=== PATIENT | male | born 1990 | race Caucasian/White ===

== ENCOUNTER 2023-09-16 10:28 | Emergency (ER) | payer OTHER, SELFPAY ==
--- NOTE | ~2023-09-16 | CT_ITS ---
EXAMINATION: CT ANGIOGRAM CHEST CLINICAL INFORMATION: Chest pain. Clinical concern for aortic dissection COMPARISON: None available. TECHNIQUE: Multiple axial images were obtained through the chest after the administration of 70 mL of Omnipaque 350 intravenous contrast. Extensive vascular post-processing including two-dimensional and three-dimensional reformatted images were created and reviewed on an independent workstation. This CT examination was performed using dose optimization techniques as appropriate, variously including the following: *Automated exposure control *Adjustment of mA and/or kV according to patient size (this includes techniques or standardized protocols for targeted exams where dose is matched to indication/reason for exam; i.e. extremities or head) *Use of iterative reconstruction technique DLP: 363 mGy-cm FINDINGS: VASCULAR: ASCENDING AORTA: There is no dissection or aneurysm. There is some motion artifact limiting assessment of the coronary arteries. There is equivocal narrowing with surrounding soft tissue in the proximal left anterior descending coronary artery AORTIC ARCH: There is no dissection or aneurysm. DESCENDING AORTA: There is no dissection or aneurysm. No significant plaque ABDOMINAL AORTA: The visualized upper abdominal aorta is normal caliber CELIOMESENTERIC ARTERIES: The celiac axis and SMA opacify proximally. RENAL ARTERIES: There is opacification of the central aspect of the main renal artery on each side NONVASCULAR: LUNGS: No abnormality of the trachea or mainstem bronchi. There is no edema or pneumonia. No suspicious nodules. MEDIASTINUM: Scattered opacities in the anterior mediastinal fat consistent with residual thymic tissue. No mediastinal hematoma. No pericardial fluid. No enlarged lymph nodes. No suspicious abnormality of the esophagus PLEURA: There is no pleural effusion. No pleural mass or thickening. VISUALIZED UPPER ABDOMEN: No suspicious abnormality. The visualized kidneys enhance symmetrically. OSSEOUS STRUCTURES: No suspicious abnormality CT/CT angio chest aorta IMPRESSION: No aortic dissection. There is a probable abnormality involving the proximal LAD. Suspect dissection of the LAD. Fleischner guidelines were followed.
--- NOTE | ~2023-09-16 | XR_ITS ---
EXAMINATION: XR CHEST CLINICAL INFORMATION: Chest pain. COMPARISON: None available. TECHNIQUE: 2 views of the chest were obtained. FINDINGS: The cardiomediastinal silhouette is within normal limits. The lungs are well expanded. No consolidation or effusion. No pneumothorax. No acute osseous abnormalities. XR/XR chest 2V IMPRESSION: No acute cardiopulmonary findings.
--- NOTE | 2023-09-16 10:30 | ECG_ITS ---
Test Reason : chest pain Blood Pressure : / mmHG Vent. Rate : 089 BPM Atrial Rate : 089 BPM P-R Int : 152 ms QRS Dur : 094 ms QT Int : 378 ms P-R-T Axes : 078 064 041 degrees QTc Int : 459 ms Normal sinus rhythm Intra-ventricular conduction delay Nonspecific ST abnormality Anterolateral leads Abnormal ECG No previous ECGs available Referred By: Generic ED Physician Electronically Signed By:HUMERA COLINDRES MD
[2023-09-16 10:38] VITALS: BP 119/65; PULSE 90; RESP 22; TEMP 36; O2SAT 100; BMI 23.7
[2023-09-16 11:09] LABS: MANUAL DIFF FLAG NO
[2023-09-16 11:10] LABS: Basophils Absolute Auto 0.1 X10*3/uL (0.0-0.2); Basophils Percent Auto 0.4 % (0-2); Eosinophils Percent Auto 0.2 % (0-4); Hematocrit 41.9 % (42.0-52.0); Hemoglobin 14.5 g/dl (14.0-18.0); Imm Gran Abs Auto 0.08 X10*3/uL (0.00-0.03); Imm Gran Pct Auto 0.5 % (0.0-0.4); Lymphocytes Absolute Auto 2.2 X10*3/uL (1.2-4.9); Lymphocytes Percent Auto 12.6 % (20-40); Mean Corpuscular HGB Conc 34.6 g/dl (31.0-36.0); Mean Corpuscular Hemoglobin 30.3 pg (27.0-33.0); Mean Corpuscular Volume 87.7 fL (80.0-98.0); Mean Platelet Volume 10.1 fL (9.4-12.4); Monocytes Absolute Auto 0.6 X10*3/uL (0.1-1.2); Monocytes Percent Auto 3.6 % (2-11); Neutrophils Absolute Auto 14.6 x10*3/uL (2.0-8.3); Neutrophils Percent Auto 82.7 % (45-73); Platelet Count 512 X10*3/uL (160-400); Red Blood Count 4.78 X10*6/uL (4.60-5.80); Red Cell Distribution Width 13.2 % (11.0-16.0); White Blood Count 17.6 X10*3/uL (4.8-10.8)
[2023-09-16 11:24] LABS: Anion Gap 22 (12-20); Blood Urea Nitrogen 17 mg/dL (9-16); Calcium 9.7 mg/dL (8.4-10.2); Carbon Dioxide 18 mmol/L (22-29); Chloride 104 mmol/L (96-108); Creatinine Clr Calc Pharmacy 107.5; Estimated Glomerular Filt Rate > 60; Glucose Random 191 mg/dL (60-115); Potassium 3.1 mmol/L (3.3-5.1); Sodium 141 mmol/L (135-145)
[2023-09-16 11:30] LABS: Troponin-I High Sensitivity 38.6 ng/L (<3.5-35.0)
--- NOTE | 2023-09-16 11:30 | ED.CHESTPAIN ---
HPI - Chest Pain General Chief Complaint: Chest Pain Stated Complaint: Chest pain Time Seen by Provider: 09/16/23 11:15 Source: patient Mode of arrival: ambulatory Limitations: no limitations History of Present Illness HPI narrative: 33 yo male with no PMH had a significant work out today for the [employer]. He did drink caffeine and take pre-workout. He also had his flu shot yesterday. After the work out was done he felt off, weakness, n/v and central chest pain radiating to left arm he also felt shortness of breath. This has never happened before. He still feels weak and off. He has no known fam hx, no known CAD. He has no traveled or had a procedure in 4 weeks. MD complaint: chest pain Onset (ago): hour(s) (1 hour prior to arrival ) Timing of current episode: constant Prior episodes: No Onset: during exertion Pain location: substernal and left chest Pain radiation: left arm Severity: moderate Quality: tightness Relieving factors: rest Exacerbating factors: nothing Context: other (took pre-workout then did significant exercise) Associated symptoms: nausea and dyspnea Treatment prior to arrival: none Related Data Allergies Allergy/AdvReac Type Severity Reaction Status Date / Time No Known Allergies Allergy Verified 09/16/23 10:42 Review of Systems Review of Systems: Constitutional : No Weight loss, No Fever, No Chills ENT/Mouth : No sore throat, No Rhinorrhea Eyes: No Eye Pain, No Swelling Cardiovascular : pos Chest Pain, pos SOB, no Dyspnea on Exertion, No Orthopnea, No Edema, No Palpitations Respiratory : No Cough, No Sputum Gastrointestinal : pos Nausea, pos Vomiting, No Diarrhea, No abdominal Pain, No Hematochezia, No Melena Genitourinary : No Dysuria, No Urinary Frequency Musculoskeletal : No joint pain, No Myalgias, No Joint Swelling Skin : No Skin Lesions, No rash Neuro : No Weakness, No Numbness, No Dizziness, No Headache Psych : No Anxiety/Panic, No Depression All other systems reviewed and are negative [facility] Past Medical History Attestation statement: The following information was validated with the patient. Medical History No pertinent past medical history Social History Social History (Updated 09/16/23 @ 11:34 by Carey [place], DO) Patient Tobacco Use Status: Never used Tobacco Use of substances other than those prescribed or required for medical reasons: No Advance Directives: No Advance Directives Information Provided: No Physical Exam Vital Signs: Vital Signs: Last Vital Signs Temp 96.8 F 09/16/23 10:38 Pulse 81 09/16/23 12:13 Resp 20 09/16/23 12:13 BP 122/77 09/16/23 12:13 Pulse Ox 99 09/16/23 12:13 O2 Del Method Room Air 09/16/23 12:13 BMI result Body Mass Index 23.9 Appearance: Alert. Oriented X3. mild acute distress. anxious Eyes: Pupils equal, round and reactive to light. ENT: Pharynx normal. Neck: Normal inspection. Neck supple. CVS: Normal heart rate and rhythm. Pulses normal. Respiratory: No respiratory distress. Breath sounds normal. Abdomen: Soft and nontender. femoral pulses intact, no pulsatile mass Skin: Skin warm and dry. pale skin color. Normal skin turgor. Extremities: No lower extremity edema. No calf ttp Neuro: Oriented X 3. No motor deficit. No sensory deficit. Course Course Course Narrative: t waves appear taller on tele monitoring - repeat EKG ordered now BP stable at this time EKG showing MICHELLE anteriorly will consult IR at [facility] now 1202pm Reevaluation(s) Reevaluation #1: call back from Dr. Dc 1208pm. 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 Medications Administered Discontinued Medications Generic Name Dose Route Start Last Admin Trade Name Freq PRN Reason Stop Dose Admin Aspirin 324 mg 09/16/23 12:44 09/16/23 12:55 Aspirin 81 Mg Tab.Chew PO 09/16/23 12:45 324 mg ONCE ONE Administration Atorvastatin Calcium 80 mg 09/16/23 12:44 09/16/23 12:56 Atorvastatin Calcium 80 Mg Tablet PO 09/16/23 12:45 80 mg ONCE ONE Administration Fentanyl 50 mcg 09/16/23 12:10 09/16/23 12:15 Fentanyl Citrate/Pf 100 Mcg/2 Ml Vial IVPUSH 09/16/23 12:11 50 mcg ONCE ONE Administration Protocol Fentanyl 50 mcg 09/16/23 12:36 09/16/23 12:46 Fentanyl Citrate/Pf 100 Mcg/2 Ml Vial IVPUSH 09/16/23 12:37 50 mcg ONCE ONE Administration Protocol Heparin Sodium (Porcine) 4,000 unit 09/16/23 12:44 09/16/23 12:58 Heparin Sodium,Porcine 5,000 Unit/Ml Vial IVPUSH 09/16/23 12:45 4,000 unit ONCE ONE Administration Sodium Chloride 1,000 mls @ 999 mls/hr 09/16/23 11:30 09/16/23 13:00 Ns IV 09/16/23 12:30 Infused .Q1H1M DAYRON Infusion Sodium Chloride 1,000 mls @ 999 mls/hr 09/16/23 11:30 09/16/23 12:07 Ns IV 09/16/23 12:30 999 mls/hr .Q1H1M DAYRON Administration Iohexol 100 ml 09/16/23 12:47 09/16/23 12:47 Iohexol 350 Mg/Ml 100 Ml Infus..Btl IV 09/16/23 12:48 70 ml ONCE ONE Administration Ondansetron HCl 4 mg 09/16/23 11:19 09/16/23 11:36 Ondansetron Hcl 4 Mg/2 Ml Vial IVPUSH 09/16/23 11:20 4 mg ONCE ONE Administration Potassium Chloride 40 meq 09/16/23 11:42 09/16/23 13:08 Potassium Chloride Packet 20 Meq Packet PO 09/16/23 11:43 Not Given ONCE ONE Ticagrelor 180 mg 09/16/23 12:45 09/16/23 12:57 Ticagrelor 90 Mg Tablet PO 09/16/23 12:46 180 mg ONCE ONE Administration Medical Decision Making Medical Decision Making MDM Narrative: 33 yo male otherwise healthy here with c/o chest pain dyspnea n/v after vigorous intact pulses PERC negative - will need basic labs, EKG< troponin will send to STAT aorta study, IVF x 2L in case of dehydration and rhabdo, could be vasospasm, myocarditis, reaction to shot, dissection, would be unusual for ACS from plaque given no prior history of chest pain with working out and he is very physically active and fit. Differential Diagnosis Differential Diagnoses: The differential diagnosis associated with the presentation includes myocarditis, pericarditis, reaction to flu shot, dissection, ACS in setting of possible coronary spasm, rhabdomyolysis PERC Negative doubt VTE Admission/Observation Consideration of admission/observation: Escalation of care including admission/observation considered transfer to tertiary center given EKG changes that have evolved during stay to STEMI Consult Healthcare Provider Management of the patient was discussed with: [facility] cardiology from [facility] involved in care Lab Data MDM Lab Attestation statement: I reviewed the patient's lab results. 09/16/23 11:01 09/16/23 11:01 Labs: Lab Results 09/16/23 09/16/23 Range/Units 11:01 12:02 WBC 17.6 H (4.8-10.8) X10*3/uL RBC 4.78 (4.60-5.80) X10*6/uL Hgb 14.5 (14.0-18.0) g/dl Hct 41.9 L (42.0-52.0) % MCV 87.7 (80.0-98.0) fL MCH 30.3 (27.0-33.0) pg MCHC 34.6 (31.0-36.0) g/dl RDW 13.2 (11.0-16.0) % Plt Count 512 H (160-400) X10*3/uL MPV 10.1 (9.4-12.4) fL Immature Gran % (Auto) 0.5 H (0.0-0.4) % Neut % (Auto) 82.7 H (45-73) % Lymph % (Auto) 12.6 L (20-40) % [place] % (Auto) 3.6 (2-11) % Eos % (Auto) 0.2 (0-4) % Baso % (Auto) 0.4 (0-2) % Lymph # (Auto) 2.2 (1.2-4.9) X10*3/uL [place] # (Auto) 0.6 (0.1-1.2) X10*3/uL Eos # (Auto) 0.0 (0.0-0.4) X10*3/uL Baso # (Auto) 0.1 (0.0-0.2) X10*3/uL Abs Immat Gran (auto) 0.08 H (0.00-0.03) X10*3/uL Absolute Neuts (auto) 14.6 H (2.0-8.3) x10*3/uL Absolute Nucleated RBC 0.000 (0.0-0.012) X10*3/uL Nucleated RBC % (auto) 0.0 (0.0-0.2) /100WBC Sodium 141 (135-145) mmol/L Potassium 3.1 L (3.3-5.1) mmol/L Chloride 104 (96-108) mmol/L Carbon Dioxide 18 L (22-29) mmol/L Anion Gap 22 H (12-20) BUN 17 H (9-16) mg/dL Creatinine 1.06 (0.5-1.4) mg/dL Estim Creat Clear Calc 107.5 Estimated GFR > 60 Random Glucose 191 H (60-115) mg/dL Calcium 9.7 (8.4-10.2) mg/dL Magnesium 2.3 (1.6-2.6) mg/dL Total Bilirubin 0.3 (0.0-1.0) mg/dL Direct Bilirubin 0.2 (0.0-0.5) mg/dL AST 55 H (5-37) U/L ALT 98 H (0-40) U/L Alkaline Phosphatase 62 (39-117) U/L Total Creatine Kinase 283 H (38-174) U/L Troponin I High Sens 38.6 H (<3.5-35.0) ng/L Total Protein 7.4 (6.5-8.0) g/dL Albumin 4.4 (3.5-5.0) g/dL COVID-19 (EDUARDO) Negative (Negative) COVID-19 Clin Com See Note Independent Interpretation I performed an independent interpretation of an: EKG and CT Scan (I see no dissection on initial CTA) Interpretation: Rate: 89 Rhythm: NSR [place]: normal Normal P waves. Normal JENNIFER. Normal QRS complex. ST T wave : no MICHELLE tall T waves in V2-V3 but no MICHELLE, artifact is noted qTC: normal prior studies: no priors The study has been interpreted contemporaneously by me. . EKG #2 Rate: 75 Rhythm: NSR [place]: normal Normal P waves. Normal JENNIFER. Normal QRS complex. ST T wave : ST elevation now in V3-V5, new T wave inversion in V1, changes in inf leads as well nut no reciprocal changes qTC: 469 prior studies: changed from prior EKG The study has been interpreted contemporaneously by me. . EKG#3 Rate: 76 Rhythm: NSR [place]: normal Normal P waves. Normal JENNIFER. Normal QRS complex. ST T wave : T wave inversions inf leads, ST elevations anterior wall STEMI qTC: 463 prior studies: anterior wall STEMI The study has been interpreted contemporaneously by me. . Radiology Impression Discussion of test interpretation with radiology: I discussed test interpretation with the radiologist and I have reviewed the radiologist's reading. Radiologist Impression: radiologist also does not see dissection at this time 1255pm but full report not in at this time. Independent Historian Clinical information obtained from an independent historian. History obtained from or confirmed by: Friend Critical Care Time Critical Care Time Critical Care Time: Yes Total Critical Care Time: 60 Attestation: consult, STEMI transfer, multiple EKGs, CTA, IV fentanyl x 2 I attest to this time spent taking care of the patient Discharge Plan Discharge Clinical Impression: ST segment changes on electrocardiogram, Acute ST elevation myocardial infarction (STEMI) of anterior wall, Acute hypokalemia Chest pain Qualifiers: Chest pain type: precordial pain Qualified Code(s): R07.2 - Precordial pain Patient Disposition: Xfer Acute Care Hospital Transfer Details: [facility] Interventions: Acute Care Transfer Worksheet (ED) Last Done: 09/16/23 13:26 Discharge Date/Time: 09/16/23 13:10
[2023-09-16] MEDS: ondansetron HCL 4 MG/2 ML VIAL IVPUSH (11:36)
[2023-09-16] MEDS: 0.9 % Sodium Chloride 1,000 ML 999 ML IV ×2 (11:36→12:07)
--- NOTE | 2023-09-16 11:47 | PC.NURSE ---
pt aox4, ambulatory. coming from [facility] with sharp chest pain and nausea and vomiting. 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 IV inserted, labs drawn. EKG done. Pt taken to CT scan now. 2nd trop pending 1pm
--- NOTE | 2023-09-16 11:54 | ECG_ITS ---
Test Reason : CP Blood Pressure : / mmHG Vent. Rate : 075 BPM Atrial Rate : 075 BPM P-R Int : 146 ms QRS Dur : 142 ms QT Int : 420 ms P-R-T Axes : 064 076 037 degrees QTc Int : 469 ms Normal sinus rhythm with sinus arrhythmia Right bundle branch block ST elevation consider anterolateral injury or acute infarct ST elevation consider inferior injury or acute infarct ACUTE ND / STEMI Abnormal ECG When compared with ECG of 16-SEP-2023 10:32, Right bundle branch block is now Present ST more elevated in Anterolateral leads Referred By: Carey Krishnamurthy Electronically Signed By:HUMERA COLINDRES MD
--- NOTE | 2023-09-16 11:55 | ECG_ITS ---
Test Reason : CHEST PAIN Blood Pressure : / mmHG Vent. Rate : 076 BPM Atrial Rate : 076 BPM P-R Int : 154 ms QRS Dur : 100 ms QT Int : 412 ms P-R-T Axes : 059 067 024 degrees QTc Int : 463 ms Normal sinus rhythm ST elevation consider anterolateral injury or acute infarct ACUTE IA / STEMI Abnormal ECG When compared with ECG of 16-SEP-2023 11:57, Right bundle branch block is no longer Present Referred By: Carey Krishnamurthy Electronically Signed By:HUMERA COLINDRES MD
[2023-09-16 12:08] VITALS: BMI 23.9
[2023-09-16 12:13] VITALS: BP 122/77; PULSE 81; RESP 20; O2SAT 99
[2023-09-16 12:14] LABS: Alanine Aminotransferase 98 U/L (0-40); Albumin Level 4.4 g/dL (3.5-5.0); Alkaline Phosphatase 62 U/L (39-117); Aspartate Amino Transferase 55 U/L (5-37); Bilirubin Direct 0.2 mg/dL (0.0-0.5); Bilirubin Total 0.3 mg/dL (0.0-1.0); Magnesium 2.3 mg/dL (1.6-2.6); Total Protein 7.4 g/dL (6.5-8.0)
[2023-09-16] MEDS: fentaNYL citrate/PF 100 MCG/2 ML VIAL 50 MCG IVPUSH ×2 (12:15→12:46)
[2023-09-16 12:18] LABS: COVID-19 Test Negative (Negative); IDNOW Serial# BCCEAD1C
[2023-09-16] MEDS: iohexoL 350 MG/ML 100 ML INFUS..BTL IV (12:47)
[2023-09-16] MEDS: Aspirin 81 MG TAB.CHEW 324 MG PO (12:55)
[2023-09-16] MEDS: Atorvastatin Calcium 80 MG TABLET PO (12:56)
[2023-09-16] MEDS: Ticagrelor 90 MG TABLET 180 MG PO (12:57)
[2023-09-16] MEDS: Heparin Sodium,Porcine 5,000 UNIT/ML VIAL 4000 UNIT IVPUSH (12:58)
--- NOTE | 2023-09-16 13:09 | PC.NURSE ---
three EKGs done throughout stay in ED
--- NOTE | 2023-09-16 13:23 | PC.NURSE ---
report given to Sangita DURON, at [facility] lab
== END 2023-09-16 13:10 | disposition short-term general hospital (02) ==
PROVIDERS: Emergency Provider Emergency Medicine
DX: I21.09 ST elevation (STEMI) myocardial infarction involving other coronary artery of anterior wall (principal); E87.6 Hypokalemia; R07.89 Other chest pain; R11.2 Nausea with vomiting, unspecified; R06.02 Shortness of breath; Z11.52 Encounter for screening for COVID-19; Z20.822 Contact with and (suspected) exposure to COVID-19; Z79.899 Other long term (current) drug therapy
CPT/HCPCS: 36415; 71046; 71275; 80048; 80076; 82550; 83735; 84484; 85025; 87635; 93005; 96361; 96374; 96375; 96376; 99285; J1643; J2405; J3010; Q9967